=== PATIENT | male | born 1990 | race Hispanic/Latino ===

== ENCOUNTER 2023-01-12 08:32 | Emergency (ER) | payer OTHER ==
[~2023-01-12] VITALS: Ht 175.3 cm; Wt 86.2 kg
[2023-01-12 11:41] VITALS: BP 140/82; PULSE 90; RESP 17; O2SAT 99
[2023-01-12] MEDS ORDERED: FLUT16H NASAL (11:42)
[2023-01-12] MEDS ORDERED: PRED20TA3 PO (11:42)
[2023-01-12] MEDS ORDERED: BROM118S48 PO (11:42)
== END 2023-01-12 11:37 | disposition home or self-care (01) ==
LOC: EDH 08:32
DX: S16.1XXA Strain of muscle, fascia and tendon at neck level, initial encounter (principal); S39.012A Strain of muscle, fascia and tendon of lower back, initial encounter; V89.2XXA Person injured in unspecified motor-vehicle accident, traffic, initial encounter; Y93.89 Activity, other specified; Y92.89 Other specified places as the place of occurrence of the external cause; Y99.8 Other external cause status
CPT/HCPCS: 72040; 72100; 73110